=== PATIENT | female | born 1970 | race Caucasian/White ===

== ENCOUNTER 2016-11-07 12:49 | Emergency (ER) | payer SELFPAY ==
--- NOTE | 2016-11-07 15:09 | DIAGNOSTIC IMAGING REPORT ---
PROCEDURE: XR FOREARM - RIGHT INDICATION: TRAUMA/INJURY TECHNIQUE: AP and lateral views. COMPARISON: None. FINDINGS: Osseous structures are normal. IMPRESSION: 1. Normal right forearm.
--- NOTE | 2016-11-07 15:09 | DIAGNOSTIC IMAGING REPORT ---
PROCEDURE: XR FOREARM - RIGHT INDICATION: TRAUMA/INJURY TECHNIQUE: AP and lateral views. COMPARISON: None. FINDINGS: Osseous structures are normal. IMPRESSION: 1. Normal right forearm.
--- NOTE | 2016-11-07 15:19 | DIAGNOSTIC IMAGING REPORT ---
PROCEDURE: XR ELBOW 3 OR 4 VIEWS - RIGHT INDICATION: PAIN TECHNIQUE: Four views. COMPARISON: None. FINDINGS: There are mild to moderate arthritic changes of the radiohumeral joint with peripheral osteophytes of the radial head. There are mild degenerative changes of the ulnar humeral joint. The rest of the osseous structures and joint spaces are normal. No evidence of an effusion. IMPRESSION: 1. 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 2. No evidence of effusion to suggest fracture. If an occult fracture is still suspected, follow-up radiographs in 10-14 days may be of assistance. 3. Findings discussed with Dr. Ben Devlin.
--- NOTE | 2016-11-07 16:12 | ED ORDER SUMMARY ---
..... Patient: MICHEAL GARCIA OrderSheet [facility] VisitID: [id number] [address] [place] [address] 46y, F Registration Date/Time: 11/07/2016 ORDER SHEET Weight: 76.2 kg (stated) Allergies: Adhesive Tape, Aspirin, Morphine and Related, Percocet GENERAL ORDERS: Elbow 3 or 4V Right Urgent (14:06 11/07/2016 [facility] ER Tech1 verbal order read back to Rito FLORES) (Ack 14:07 NHouse ER Tech1) (14:27 NHouse ER Tech1) Forearm Right (Please include wrist) Urgent (14:55 11/07/2016 Rito FLORES) (Ack 14:59 [facility] ER Tech1) (15:09 Jocy) Splint (UE) (Right) (Dorsal) (Long Arm) (15:18 11/07/2016 Rito FLORES) (15:36 LNations ER Tech1) Sling - arm (15:18 11/07/2016 Rito FLORES) (15:36 LNations ER Tech1) MEDICATION ORDERS: IV FLUIDS: ORDER SHEET NOTES: [Electronically signed by Gayathri Lu R.N. (19:11/07/2016)] [Electronically signed by Ben Devlin MD (15:42 11/13/2016)] [Electronically locked/signed by Gayathri Lu R.N. (:11/07/2016)]
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
--- NOTE | 2016-11-07 16:12 | ED ORDER SUMMARY ---
..... Patient: MICHEAL GARCIA OrderSheet [facility] VisitID: [id number] [address] [place] [address] 46y, F Registration Date/Time: 11/07/2016 ORDER SHEET Weight: 76.2 kg (stated) Allergies: Adhesive Tape, Aspirin, Morphine and Related, Percocet GENERAL ORDERS: Elbow 3 or 4V Right Urgent (14:06 11/07/2016 NHouse ER Tech1 verbal order read back to Rito FLORES) (Ack 14:07 NHouse ER Tech1) (14:27 NHouse ER Tech1) Forearm Right (Please include wrist) Urgent (14:55 11/07/2016 Rito FLORES) (Ack 14:59 [facility] ER Tech1) (15:09 Jocy) Splint (UE) (Right) (Dorsal) (Long Arm) (15:18 11/07/2016 Rito FLORES) (15:36 LNations ER Tech1) Sling - arm (15:18 11/07/2016 Rito FLORES) (15:36 LNations ER Tech1) MEDICATION ORDERS: IV FLUIDS: ORDER SHEET NOTES: [Electronically signed by Gayathri Lu R.N. (19:11/07/2016)] [Electronically signed by Ben Devlin MD (15:42 11/13/2016)] [Electronically locked/signed by Gayathri Lu R.N. (:11/07/2016)]
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
--- NOTE | 2016-11-13 15:43 | ED MAR SUMMARY ---
..... Medication Administration Record [facility] [address] [place], [place] [id number] Patient: MICHEAL GARCIA Visit ID: [id number] 46y, F Weight: 76.2 kg Height/Length: 68 in BMI: 25.5 ALLERGIES: Adhesive Tape, Aspirin, Morphine and Related, Percocet
--- NOTE | 2016-11-13 15:43 | ED MED RECONCILIATION SUMMARY ---
Patient: MICHEAL GARCIA Medication Reconciliation Report [facility] VisitID: [id number] [address] [place] [address] 46y, F Registration Date/Time: 11/07/2016 Weight: 76.2 kg Height/Length: 68 in. BMI: 25.5 ALLERGIES: Adhesive Tape, Aspirin, Morphine and Related, Percocet The patient's Home Medications are listed below: THE FOLLOWING MEDICATIONS NEED TO BE RECONCILED: Albuterol Sulfate HFA Inhalation Asthmacourt Epinephrine pen LORazepam Oral The source(s) of the original Home Medication information: Not obtained. The following Medications were given to the patient in the Emergency Department: None. The following Medications were prescribed to the patient: Ultram 50 mg tablets: take 1-2 orally every 6 hours as needed for pain. Dispense twenty (20). No refills. Substitution is permissible. -- Ben Devlin MD
--- NOTE | 2016-11-13 15:43 | ED MAR SUMMARY ---
..... Medication Administration Record [facility] [address], [place] [id number] Patient: MICHEAL GARCIA Visit ID: [id number] 46y, F Weight: 76.2 kg Height/Length: 68 in BMI: 25.5 ALLERGIES: Adhesive Tape, Aspirin, Morphine and Related, Percocet
--- NOTE | 2016-11-13 15:43 | ED MED RECONCILIATION SUMMARY ---
Patient: MICHEAL GARCIA Medication Reconciliation Report [facility] VisitID: [id number] [address] [place] [address] 46y, F Registration Date/Time: 11/07/2016 Weight: 76.2 kg Height/Length: 68 in. BMI: 25.5 ALLERGIES: Adhesive Tape, Aspirin, Morphine and Related, Percocet The patient's Home Medications are listed below: THE FOLLOWING MEDICATIONS NEED TO BE RECONCILED: Albuterol Sulfate HFA Inhalation Asthmacourt Epinephrine pen LORazepam Oral The source(s) of the original Home Medication information: Not obtained. The following Medications were given to the patient in the Emergency Department: None. The following Medications were prescribed to the patient: Ultram 50 mg tablets: take 1-2 orally every 6 hours as needed for pain. Dispense twenty (20). No refills. Substitution is permissible. -- Ben Devlin MD
--- NOTE | 2016-11-13 15:43 | ED DISCHARGE INSTRUCTIONS ---
Patient: MICHEAL GARCIA General Instructions Formerly [facility] VisitID: [id number] [place] [address] 46y, F Registration Date/Time: 11/07/2016 Contusion to the right elbow. INSTRUCTIONS Apply ice. Elevate affected areas above chest level. Wear sling until released and splint until released. No driving or operating machinery while taking medication. Limit use of your hand. Warnings: COMPLICATIONS: Complications from this condition include: possible injury to a nerve, possible injury to a tendon and possible injury to a ligament. Future problems may include loss of function, pain and poor fracture healing. It is important to follow up with a physician for further evaluation and treatment. GENERAL WARNINGS: Return or contact your physician immediately if your condition worsens or changes unexpectedly, if not improving as expected, or if other problems arise. Prescription Medications: Ultram 50 mg tablets: take 1-2 orally every 6 hours as needed for pain. Dispense twenty (20). No refills. Substitution is permissible. Understanding of the discharge instructions verbalized by patient. Follow-up with: Russ Polk MD, [facility], [phone], [facility], [address] [place] [address] Follow up in ten days. Call for the next available appointment. ADDITIONAL INFORMATION Contusion:Upper Extremity You have a contusion of your upper extremity (arm, wrist, hand or fingers). This causes local pain, swelling and sometimes bruising. There are no broken bones. This injury takes a few days to a few weeks to heal. A sling may be provided for comfort and arm support. Home Care: 1) Keep your arm elevated to reduce pain and swelling. This is very important during the first 48 hours. 2) Apply an ice pack (ice cubes in a plastic bag, wrapped in a towel) over the injured area for 20 minutes every 1-2 hours the first day for pain relief. Continue this 3-4 times a day until the pain and swelling goes away. 3) You may use acetaminophen (Tylenol) or ibuprofen (Motrin, Advil) to control pain, unless another pain medicine was prescribed. [ NOTE : If you have chronic liver or kidney disease or ever had a stomach ulcer or GI bleeding, talk with your doctor before using these medicines.] 4) If a sling was provided, you may remove it to shower or bathe. Do not wear it for more than one week or it may cause joint stiffness. Follow Up with your doctor or this facility if you are not starting to improve within the next THREE days. [NOTE: If X-rays were taken, they will be reviewed by a radiologist. You will be notified of any new findings that may affect your care.] Get Prompt Medical Attention if any of the following occur: -- Pain or swelling increases -- Redness, warmth or drainage -- Hand or fingers becomes cold, blue, numb or tingly Contusion, Elbow A contusion of your elbow causes local pain, swelling and sometimes bruising. There are no broken bones. This injury takes a few days to a few weeks to heal. A sling may be provided for comfort and arm support Home Care : Keep your arm elevated to reduce pain and swelling.This is most important during the first 48 hours after injury. Apply an ice pack (ice cubes in a plastic bag, wrapped in a towel) over the injured area for 20 minutes every 1-2 hours the first day. You should continue with ice packs 3-4 times a day for the next two days. Continue the use of ice packs for relief of pain and swelling as needed. You may use acetaminophen (Tylenol) or ibuprofen (Motrin, Advil) to control pain, unless another pain medicine was prescribed. [NOTE: If you have chronic liver or kidney disease or ever had a stomach ulcer or GI bleeding, talk with your doctor before using these medicines.] If a sling was provided, you may remove it to shower or bathe. Do not wear it for more than one week or it may cause joint stiffness. Follow Up with your doctor or as advised by our staff if you are not starting to improve within the nextthree days. Get Prompt Medical Attention if any of the following occur: Pain or swelling increases Redness, warmth or drainage Hand or fingers becomes cold, blue, numb or tingly Fracture: Radial Head You have a break (fracture) at the elbow (radial head). This may be a small crack in the bone; or a major break with the broken parts pushed out of position. This fracture usually takes 3-6 weeks to heal. In most cases, initial treatment is with a splint and sling, or a sling alone. Severe fractures may require putting the bone back in place. Sometimes surgery is required. Home Care: Keep your arm elevated to reduce pain and swelling. When sitting or lying down elevate your arm above the level of your heart. You can do this by placing your arm on a pillow that rests on your chest or on a pillow at your side. This is most important during the first 48 hours after injury. Apply an ice pack (ice cubes in a plastic bag, wrapped in a towel) over the injured area for 20 minutes every 1-2 hours the first day. You can place the ice pack inside the sling and directly over the splint. Continue with ice packs 3-4 times a day for the next two days, then as needed for the relief of pain and swelling. If you were given a sling and splint, leave it in place for the time advised. Keep the splint completely dry at all times. Bathe with your splint out of the water, protected with a large plastic bag, rubber-banded at the top end. If a fiberglass splint/cast gets wet, you can dry it with a hair-dryer. If you were given a sling only, wear it for the first week. Unless told otherwise, gradually begin range of motion exercises, after the first week, or as advised by your doctor. You may use acetaminophen (Tylenol) or ibuprofen (Motrin, Advil) to control pain, unless another pain medicine was prescribed. [NOTE: If you have chronic liver or kidney disease or ever had a stomach ulcer or GI bleeding, talk with your doctor before using these medicines.] Follow Up with your doctor in one week, or as advised by our staff, to be sure the bone is healing properly. An elbow joint will become stiff if immobile for too long. Ask your doctor when to begin range of motion exercises to prevent the elbow from getting stiff. [NOTE: If X-rays were taken, they will be reviewed by a radiologist. You will be notified if there are any new findings that may affect your care.] Get Prompt Medical Attention if any of the following occur: The plaster splint becomes wet or soft The fiberglass splint remains wet for more than 24 hours Increased tightness or pain in the elbow Fingers become swollen, cold, blue, numb or tingly Splint Care, Fiberglass The following will help you care for your splint: It will take up totwo hours for your fiber glass splint to fully harden; therefore, do notapply any pressure on it during that time or else it may break. To prevent swelling under the splint, for thefirst 48 hours: If the splint is on yourarm, keep it in a sling or raised to shoulder level when sitting or standing; rest it on your chest or on a pillow at your side when lying down. If the splint is on yourfoot, keep it propped up above the level of your waist when sitting or lying. Avoid crutch walking as much as possible during this time. Keep the splint/cast dry at all times. Bathe with your splint/cast well out of the water, protected with a large plastic bag, rubber-banded at the top end. If a fiberglass cast or splint gets wet, you can dry it with a hair-dryer. Follow-up care Follow up with your doctor or this facility as advised. When to seek medical care Get prompt medical attention if any of the following occur: Bad odor from the splint or wound-fluid stains the splint The splint cracks or remains wet over 24 hours Increasing tightness or pressure under the splint Fingers or toes become swollen, cold, blue, numb or tingly Increased pain under the splint Tramadol Hydrochloride Oral tablet What is this medicine? TRAMADOL (TRA ma dole) is a pain reliever. It is used to treat moderate to severe pain in adults. How should I use this medicine? Take this medicine by mouth with a full glass of water. Follow the directions on the prescription label. If the medicine upsets your stomach, take it with food or milk. Do not take more medicine than you are told to take. Talk to your detective investigator regarding the use of this medicine in children. Special care may be needed. What side effects may I notice from receiving this medicine? Side effects that you should report to your doctor or health medicare sales representative as soon as possible: allergic reactions like skin rash, itching or hives, swelling of the face, lips, or tongue breathing difficulties, wheezing confusion itching light headedness or fainting spells redness, blistering, peeling or loosening of the skin, including inside the mouth seizures Side effects that usually do not require medical attention (report to your doctor or health medicare sales representative if they continue or are bothersome): constipation dizziness drowsiness headache nausea, vomiting What may interact with this medicine? Do not take this medicine with any of the following medications: MAOIs like Carbex, Eldepryl, Marplan, Nardil, and Parnate This medicine may also interact with the following medications: alcohol or medicines that contain alcohol antihistamines benzodiazepines bupropion carbamazepine or oxcarbazepine clozapine cyclobenzaprine digoxin furazolidone linezolid medicines for depression, anxiety, or psychotic disturbances medicines for migraine headache like almotriptan, eletriptan, frovatriptan, naratriptan, rizatriptan, sumatriptan, zolmitriptan medicines for pain like pentazocine, buprenorphine, butorphanol, meperidine, nalbuphine, and propoxyphene medicines for sleep muscle relaxants naltrexone phenobarbital phenothiazines like perphenazine, thioridazine, chlorpromazine, mesoridazine, fluphenazine, prochlorperazine, promazine, and trifluoperazine procarbazine warfarin What if I miss a dose? If you miss a dose, take it as soon as you can. If it is almost time for your next dose, take only that dose. Do not take double or extra doses. Where should I keep my medicine? Keep out of the reach of children. Store at room temperature between 15 and 30 degrees C (59 and 86 degrees F). Keep container tightly closed. Throw away any unused medicine after the expiration date. What should I tell my health care provider before I take this medicine? They need to know if you have any of these conditions: brain tumor depression drug abuse or addiction head injury if you frequently drink alcohol containing drinks kidney disease or trouble passing urine liver disease lung disease, asthma, or breathing problems seizures or epilepsy suicidal thoughts, plans, or attempt; a previous suicide attempt by you or a family member an unusual or allergic reaction to tramadol, codeine, other medicines, foods, dyes, or preservatives or trying to get breast-feeding What should I watch for while using this medicine? Tell your doctor or health medicare sales representative if your pain does not go away, if it gets worse, or if you have new or a different type of pain. You may develop tolerance to the medicine. Tolerance means that you will need a higher dose of the medicine for pain relief. Tolerance is normal and is expected if you take this medicine for a long time. Do not suddenly stop taking your medicine because you may develop a severe reaction. Your body becomes used to the medicine. This does NOT mean you are addicted. Addiction is a behavior related to getting and using a drug for a non-medical reason. If you have pain, you have a medical reason to take pain medicine. Your doctor will tell you how much medicine to take. If your doctor wants you to stop the medicine, the dose will be slowly lowered over time to avoid any side effects. You may get drowsy or dizzy. Do not drive, use machinery, or do anything that needs mental alertness until you know how this medicine affects you. Do not stand or sit up quickly, especially if you are an older patient. This reduces the risk of dizzy or fainting spells. Alcohol can increase or decrease the effects of this medicine. Avoid alcoholic drinks. You may have constipation. Try to have a bowel movement at least every 2 to 3 days. If you do not have a bowel movement for 3 days, call your doctor or health medicare sales representative. Your mouth may get dry. Chewing sugarless gum or sucking hard candy, and drinking plenty of water may help. Contact your doctor if the problem does not go away or is severe. You have been given the following additional information: Contusion, Upper Extremity Contusion, Elbow Radial Head Fracture Splint Care, Fiberglass Tramadol Hydrochloride Oral tablet No driving or operating machinery while taking medication. Limit use of your hand. (Electronically signed by Ben Devlin MD 11/13/2016 15:42)
== END 2016-11-07 16:20 | disposition home or self-care (01) ==
LOC: ED SRH 12:49
DX: S50.01XA Contusion of right elbow, initial encounter (principal); W22.8XXA Striking against or struck by other objects, initial encounter; Y93.89 Activity, other specified; Y99.9 Unspecified external cause status; Y92.009 Unspecified place in unspecified non-institutional (private) residence as the place of occurrence of the external cause; F17.210 Nicotine dependence, cigarettes, uncomplicated; Z88.6 Allergy status to analgesic agent; Z88.5 Allergy status to narcotic agent